=== PATIENT | female | born 2000 | race Caucasian/White ===

== ENCOUNTER 2021-12-27 11:19 | Emergency (ER) | payer SELFPAY ==
[2021-12-27 12:14] LABS: Urine Blood Negative (Negative); Urine Glucose Negative (Negative); Urine Protein Negative (Negative); Urine Specific Gravity 1.025 (1.005-1.030)
[2021-12-27 12:42] LABS: Urine Specific Gravity/Preg 1.025 (1.005-1.030)
--- NOTE | 2021-12-27 12:49 | EDPHYS ---
Physician Documentation [facility] Name: Nica Pang Age: 21 yrs Sex: Female : 2000 Arrival Date: 12/27/2021 Time: 11:23 Bed 11 Private MD: DOMITILA Physician Armando Gonzalez HPI: 12/27 12:10 This 21 yrs old Female presents to ER via Ambulatory with complaints of Vaginal Pain, jmm Pain With Urination. 12:10 The patient presents with urinary symptoms. Onset: The symptoms/episode began/occurred jmm gradually, 1 week(s) ago. Modifying factors: The symptoms are alleviated by nothing, the symptoms are aggravated by nothing. Associated signs and symptoms: Pertinent positives: vaginal discharge. 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 - Social history:: Smoking status: Reported history of juuling and/or vaping. ROS: 12:10 Constitutional: Negative for fever, chills, and weight loss, Cardiovascular: Negative jmm for chest pain, palpitations, and edema, Respiratory: Negative for shortness of breath, cough, wheezing, and pleuritic chest pain. 12:10 : Positive for urinary symptoms. 12:10 All other systems are negative. Exam: 12:10 Constitutional: This is a well developed, well nourished patient who is awake, alert, jmm and in no acute distress. Head/Face: atraumatic. Eyes: EOMI, no conjunctival erythema appreciated ENT: Moist Mucus Membranes Neck: Trachea midline, Supple Chest/axilla: Normal chest wall appearance and motion. Cardiovascular: Regular rate and rhythm. No edema appreciated Respiratory: Normal respirations, no respiratory distress appreciated Abdomen/GI: Non distended Back: Normal ROM Skin: General appearance color normal MS/ Extremity: Moves all extremities, no obvious deformities appreciated, no edema noted to the lower extremities Neuro: Awake and alert Psych: Behavior is normal, Mood is normal, Patient is cooperative and pleasant Vital Signs: 11:57 BP 128 / 82; Pulse 100; Resp 16; Temp 98.6; Pulse Ox 100% ; Weight 39.01 kg; Height 4 jh5 ft. 9 in. (144.78 cm); Pain 9/; 11:57 Body Mass Index 18.61 (39.01 kg, 144.78 cm) [facility] MDM: 12:10 Patient medically screened. [facility] 12:47 Data reviewed: vital signs, nurses notes. Counseling: I had a detailed discussion with chelsea the patient and/or guardian regarding: the historical points, exam findings, and any diagnostic results supporting the discharge/admit diagnosis, the need for outpatient follow up, to return to the emergency department if symptoms worsen or persist or if there are any questions or concerns that arise at home. 12/27 12:14 Order name: Urine Dipstick-Ancillary; Complete Time: 12:17 EDMS 12/27 12:20 Order name: Urine --Ancillary (enter results) eb 12/27 12:10 Order name: Urine Dipstick-Ancillary (obtain specimen); Complete Time: 12:12 [facility] 12/27 12:10 Order name: Urine Test (obtain specimen); Complete Time: 12:12 [facility] 12/27 12:43 Order name: Urine --Ancillary; Complete Time: 12:43 EDMS Administered Medications: 13:13 Drug: DiFLUcan (fluconazole) 150 mg Route: PO; 13:13 Follow up: Response: Medication administered at discharge. Disposition Summary: 12/27/21 12:48 Discharge Ordered Location: Home [facility] Condition: Stable [facility] Diagnosis - UTI/ Urinary tract infection, site not specified [facility] Followup: [facility] - With: Private Physician - When: 2 - 3 days - Reason: Recheck today's complaints, Continuance of care, Re-evaluation by your physician Discharge Instructions: - Discharge Summary Sheet [facility] - Urinary Tract Infection, Adult [facility] Forms: - Medication Reconciliation Form [facility] - Thank You Letter [facility] - Antibiotic Education [facility] - Prescription Opioid Use [facility] - Work release form Prescriptions: - Cephalexin 500 mg Oral Capsule - take 1 capsule by ORAL route every 8 hours for 10 days; 30 capsule; Refills: 0, [facility] Product Selection Permitted Addendum: 12/31/2021 04:05 Co-signature as Attending Physician, Armando Gonzalez MD I agree with the assessment and c levine plan of care. Signatures: Dispatcher [employer] Armando Amador MD MD cha Mickail, Joel, PA PA [facility] Ricci, Nedra, RN RN Marisa Dobbs RN RN jh5 Corrections: (The following items were deleted from the chart) 12/27 12:00 12:00 Allergies: No Known Allergies; [email or web address]
--- NOTE | 2021-12-27 12:49 | ER ---
Nurse's Notes [facility] Name: Nica Pang Age: 21 yrs Sex: Female : 2000 Arrival Date: 12/27/2021 Time: 11:23 Bed 11 Private MD: Diagnosis: UTI/ Urinary tract infection, site not specified Presentation: 12/27 11:57 Chief complaint: Patient states: i think i have UTI, i have vaginal discomfort, burning jh5 when i pee, my kidneys dont hurt; my vagina itself hurts. Coronavirus screen: Vaccine status: Patient reports being unvaccinated. Client denies travel out of the [place] in the last 14 days. At this time, the client does not indicate any symptoms associated with coronavirus-19. Ebola Screen: Patient negative for fever greater than or equal to 101.5 degrees Fahrenheit, and additional compatible Ebola Virus Disease symptoms Patient denies exposure to infectious person. Patient denies travel to an Ebola-affected area in the 21 days before illness onset. Initial Sepsis Screen: Does the patient meet any 2 criteria? HR > 90 bpm. Yes Does the patient have a suspected source of infection? Yes: Dysuria/Frequency/Urgency/UTI. Risk Assessment: Do you want to hurt yourself or someone else? Patient reports no desire to harm self or others. Onset of symptoms was December 23, 2021. 11:57 Method Of Arrival: Ambulatory [facility] 11:57 Acuity: CARMITA 3 jh5 Triage Assessment: 12:00 General: Appears in no apparent distress. uncomfortable, slender, Behavior is calm, jh5 cooperative, appropriate for age. Pain: Complains of pain in vagina. 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 Historical: - Allergies: 12:00 Macrobid; jh5 - PMHx: 12:00 None; 5 - Immunization history:: Adult Immunizations up to date. - Social history:: Smoking status: Reported history of juuling and/or vaping. Screenin:15 Abuse screen: Denies threats or abuse. Denies injuries from another. Nutritional hb screening: No deficits noted. Tuberculosis screening: No symptoms or risk factors identified. Fall Risk None identified. Assessment: 12:15 General: SEE TRIAGE ASSESSMENT. hb Vital Signs: 11:57 BP 128 / 82; Pulse 100; Resp 16; Temp 98.6; Pulse Ox 100% ; Weight 39.01 kg; Height [address] [facility] ft. 9 in. (144.78 cm); Pain 9/10; 11:57 Body Mass Index 18.61 (39.01 kg, 144.78 cm) [facility] ED Course: 11:23 Patient arrived in ED. am2 11:28 Jose Nelson PA is PHCP. [facility] 11:28 Armando Gonzalez MD is Attending Physician. [facility] 12:00 Triage completed. [facility] 12:00 Arm band placed on right wrist. [facility] 12:12 Nedra Ricci, RN is Primary Nurse. hb 12:15 Patient has correct armband on for positive identification. hb 12:35 Urine --Ancillary (enter results) Sent. hb 13:13 No provider procedures requiring assistance completed. Patient did not have IV access hb during this emergency room visit. Administered Medications: 13:13 Drug: DiFLUcan (fluconazole) 150 mg Route: PO; hb 13:13 Follow up: Response: Medication administered at discharge. hb Medication: 12:15 VIS not applicable for this client. hb Outcome: 12:48 Discharge ordered by MD. [facility] 13:13 Discharged to home ambulatory. hb 13:13 Condition: stable 13:13 Discharge instructions given to patient, Instructed on discharge instructions, follow up and referral plans. medication usage, Demonstrated understanding of instructions, follow-up care, medications, Prescriptions given X 1. 13:13 Patient left the ED. Signatures: Jose Nelson PA PA [facility] Nedra Ricci, RN RN Ann-Marie Ramos am2 Marisa Dobbs, ANKIT RN [facility] Corrections: (The following items were deleted from the chart) 12:00 12:00 Allergies: No Known Allergies; [place] [id number]
[2021-12-27] MEDS ORDERED: FLUCONAZOLE 100 MG TAB ONE (13:09)
[2021-12-27 14:46] VITALS: BP 128/82; TEMP 98.6; O2SAT 100
== END 2021-12-27 13:13 | disposition home or self-care (01) ==
LOC: ER 11:19
DX: N39.0 Urinary tract infection, site not specified (principal)
CPT/HCPCS: 81003; 81025; 99283